=== PATIENT | male | born 1970 | race Caucasian/White ===

== ENCOUNTER 2017-06-12 13:57 | Emergency (ER) | payer BC ==
[~2017-06-12] VITALS: Ht 172.7 cm; Wt 104.2 kg
[~2017-06-12 13:57] MED LIST: ATORVASTATIN CA40 MG PO; DAILY VALUE1 EACH PO; FARXIGA5 MG PO; FISH OIL 1,2001 EAC4 PO; FOLIC ACID1 MG PO; LISINOPRIL20 MG PO; LO-DOSE ASPIRIN81 M2 PO; METFORMIN HCL1000 MG PO; TOPROL XL25 MG PO; TYLENOL WITH C1 EACH PO; VITAMIN D31000 UNIT PO; ZYRTEC10 M3 PO
[2017-06-12 14:35] LABS: POINT-OF-CARE METER ID UU14100415; POINT-OF-CARE USER ID NUTJNM
[2017-06-12 15:26] LABS: HEMATOCRIT 42.8 % (38.0-50.0); MCH 33.7 PG (29.0-34.0); MCHC 36.4 G/DL (30.0-36.0); MCV 92.4 FL (86-99); MEAN PLAT.VOLUME 9.4 uM^3 (9.0-12.4); PLATELET COUNT 178 K/uL (156-360); RBC DIS.WIDTH-CV 11.8 % (11.8-14.6); RBC DIS.WIDTH-SD 39.5 % (39-53); RED BLOOD COUNT 4.63 M/uL (4.00-5.50); WHITE BLOOD COUNT 5.6 K/uL (4.1-10.2)
[2017-06-12 15:34] LABS: CHLORIDE 101 mEq/L (99-109); POTASSIUM 4.1 mEq/L (3.7-5.4); SODIUM 137 mEq/L (136-147)
[2017-06-12 15:37] LABS: GLUCOSE 294 mg/dL (70-99)
[2017-06-12 15:38] LABS: ANION GAP 20 MEQ/L (2-14); TOTAL BILIRUBIN 0.8 mg/dL (0.0-1.0)
[2017-06-12 15:40] LABS: ALKALINE PHOSPHATASE 83 IU/L (3-129); GFR ESTIMATE (CALCULATED) > 59 mL/min/; SERUM ETHYL ALCOHOL 281 mg/dL
[2017-06-12 15:41] LABS: UREA NITROGEN (BUN) 8 mg/dL (9-23)
[2017-06-12 15:52] LABS: ADD MIUA? NO; BILIRUBIN NEGATIVE; BLOOD NEGATIVE; COLOR YELLOW ((YELLOW)); GLUCOSE (STRIP) >=500; KETONES 20; LEUKOCYTES NEGATIVE; NITRITE NEGATIVE; PROTEIN (STRIP) NEGATIVE; SPECIFIC GRAVITY 1.011 (1.000-1.030); UCUL ADDED? NO; UROBILINOGEN 0.2 MG/DL (0.2-1.0)
[2017-06-12 15:59] LABS: AMPHETAMINE NEGATIVE (500 ng/mL); BARBITURATES NEGATIVE (200 ng/mL); BENZODIAZEPINES PRESUMPTIVE POSITIVE (150 ng/mL); COCAINE NEGATIVE (150 ng/mL); INTERNAL CONTROLS VALID? YES; METHADONE NEGATIVE (200 ng/mL); METHAMPHETAMINE NEGATIVE (500 ng/mL); OPIATES (MORPHINE) NEGATIVE (100 ng/mL); OXYCODONE NEGATIVE (100 ng/mL); PHENCYCLIDINE NEGATIVE (25 ng/mL); PROPOXYPHENE NEGATIVE (300 ng/mL); THC CANNABINOIDS NEGATIVE (50 ng/mL); TRICYCLIC ANTIDEPRESSANTS NEGATIVE (300 ng/mL)
[2017-06-12 16:15] LABS: ADD MEDTOX COMMENT Y
[2017-06-12 16:31] LABS: BENZODIAZEPINES, URINE SCREEN POSITIVE (200 ng/mL)
[2017-06-12 17:29] VITALS: BP 160/100
== END 2017-06-12 17:31 | disposition home or self-care (01) ==
LOC: EME 13:57
PROVIDERS: Emergency Medicine
DX: F10.129 Alcohol abuse with intoxication, unspecified (principal); F43.20 Adjustment disorder, unspecified; E11.65 Type 2 diabetes mellitus with hyperglycemia; Z79.84 Long term (current) use of oral hypoglycemic drugs; Z63.4 Disappearance and death of family member; Z95.5 Presence of coronary angioplasty implant and graft; Z79.82 Long term (current) use of aspirin; Y90.8 Blood alcohol level of 240 mg/100 ml or more
CPT/HCPCS: 71020; 80053; 81003; 82948; 84999; 85027; 87040; 87077; 87186; 87801; 99281; 99285; G0480; J7030

== ENCOUNTER 2017-09-13 16:55 | Emergency (ER) | payer BC ==
[~2017-09-13] VITALS: Ht 172.7 cm; Wt 101.6 kg
[2017-09-13 17:05] VITALS: BP 169/106
[2017-09-13] MEDS ORDERED: KEFLEX500 MG PO (19:58)
== END 2017-09-13 20:41 | disposition home or self-care (01) ==
LOC: EME 16:55
DX: S01.81XA Laceration without foreign body of other part of head, initial encounter (principal); M54.9 Dorsalgia, unspecified; W10.9XXA Fall (on) (from) unspecified stairs and steps, initial encounter; Z23 Encounter for immunization; Z79.82 Long term (current) use of aspirin; Z90.49 Acquired absence of other specified parts of digestive tract
CPT/HCPCS: 99281; 99284